=== PATIENT | male | born 1950 | race Caucasian/White ===

== ENCOUNTER 2022-02-07 16:41 | Emergency (ER) | payer SELFPAY ==
--- NOTE | 2022-02-07 13:56 | Emergency Department Report ---
ED Syncope HPI - General Chief Complaint: High BP Stated Complaint: HYPERTENSION Source: patient - History of Present Illness Initial Comments: Patient is 71 years old male with history of hypertension and asthma. Patient brought to the emergency room via EMS from home for evaluation of sudden onset of dizziness, syncope and collapse. Patient stated that he was trying to use his oil changer and when he went down he got dizzy and passed out approximately 40 seconds before he woke up again. Patient stated that he felt the room spinning. He denied any nausea or vomiting. He stated that he has some blurry vision. He denied any ear symptoms. Patient denied any focal weakness, numbness or tingling sensation. No bowel or bladder incontinence. Patient also denies any chest pain, palpitation or shortness of breath. Stroke scale is 0. Timing/Prior Episodes: no prior history Precipitating Factors: Positive: lightheadedness. Negative: blurred vision, confusion, diaphoresis, injury, nausea, recent head trauma, rapid heart beat Context: standing Loss of Consciousness: brief (seconds) Current Symptoms: dizziness - Related Data Allergies/Adverse Reactions: Allergies No Known Allergies Allergy (Verified 02/07/22 17:06) Home Medications: Ambulatory Orders Acetaminophen [Non-Aspirin Extra Strength] 500 mg PO PRN 02/07/22 Losartan/Hydrochlorothiazide [Losartan-Hctz 50-12.5 mg Tab] 50 mg PO DAILY 02/07/22 Naproxen Sodium [All Day Pain Relief] 220 mg PO BID 02/07/22 ED Review of Systems ROS: Stated complaint: HYPERTENSION Other details as noted in HPI Comment: All other systems reviewed and negative Constitutional: denies: chills, fever Respiratory: denies: cough, shortness of breath, SOB with exertion, SOB at rest Cardiovascular: denies: chest pain, palpitations Gastrointestinal: denies: abdominal pain, nausea, vomiting, diarrhea, constipation, hematemesis, hematochezia Musculoskeletal: denies: back pain Neurological: headache, vertigo. denies: weakness, numbness, paresthesias, confusion, abnormal gait ED Past Medical Hx - Medications Home Medications: Home Medications Medication Instructions Recorded Confirmed Last Taken Type Acetaminophen [Non-Aspirin Extra 500 mg PO PRN 02/07/22 02/07/22 Unknown History Strength] Losartan/Hydrochlorothiazide 50 mg PO DAILY 02/07/22 02/07/22 Unknown History [Losartan-Hctz 50-12.5 mg Tab] Naproxen Sodium [All Day Pain 220 mg PO BID 02/07/22 02/07/22 Unknown History Relief] ED Physical Exam - General Limitations: No Limitations General appearance: alert, in no apparent distress - Head Head exam: Present: atraumatic, normocephalic, normal inspection - Eye Eye exam: Present: normal appearance - ENT ENT exam: Present: normal exam, normal orophraynx, mucous membranes moist - Neck Neck exam: Present: normal inspection, full ROM. Absent: tenderness, meningismus - Respiratory Respiratory exam: Present: normal lung sounds bilaterally - Cardiovascular Cardiovascular Exam: Present: regular rate, normal rhythm, normal heart sounds - GI/Abdominal GI/Abdominal exam: Present: soft, normal bowel sounds. Absent: distended, tenderness, guarding, rebound, rigid, organomegaly, mass, bruit, pulsatile mass, hernia - Extremities Exam Extremities exam: Present: normal inspection, full ROM, normal capillary refill. Absent: tenderness, pedal edema, joint swelling, calf tenderness - Back Exam Back exam: Present: normal inspection, full ROM. Absent: CVA tenderness (R), CVA tenderness (L) - Neurological Exam Neurological exam: Present: alert, oriented X3, CN II-XII intact, normal gait, reflexes normal. Absent: motor sensory deficit - Psychiatric Psychiatric exam: Present: normal mood - Skin Skin exam: Present: warm, intact, normal color ED Course Vital Signs 02/07/22 02/07/22 02/07/22 13:13 13:16 13:53 Temperature 98.4 F 98.8 F Pulse Rate 68 68 Respiratory 16 11 L Rate Blood Pressure Blood Pressure 178/100 181/115 [Left] O2 Sat by Pulse 100 100 96 Oximetry 02/07/22 02/07/22 02/07/22 13:55 14:00 14:16 Temperature Pulse Rate 58 L 58 L 73 Respiratory 14 14 15 Rate Blood Pressure Blood Pressure [Left] O2 Sat by Pulse 97 95 90 Oximetry 02/07/22 02/07/22 02/07/22 14:30 14:46 14:50 Temperature Pulse Rate 68 69 65 Respiratory 20 15 15 Rate Blood Pressure 168/99 168/99 Blood Pressure 168/99 [Left] O2 Sat by Pulse 100 99 100 Oximetry 05/22/22 05/22/22 05/22/22 14:51 14:53 15:00 Temperature Pulse Rate 61 84 Respiratory 23 Rate Blood Pressure 151/100 151/100 Blood Pressure [Left] O2 Sat by Pulse 98 99 Oximetry 02/07/22 02/07/22 02/07/22 15:16 15:30 15:46 Temperature Pulse Rate 97 H Respiratory 32 H Rate Blood Pressure 151/100 160/90 160/90 Blood Pressure [Left] O2 Sat by Pulse 98 99 98 Oximetry 02/07/22 02/07/22 02/07/22 16:00 16:16 16:30 Temperature Pulse Rate 89 Respiratory 18 Rate Blood Pressure 158/89 158/89 160/91 Blood Pressure 160/91 [Left] O2 Sat by Pulse 98 98 98 Oximetry 02/07/22 02/07/22 02/07/22 16:46 17:00 17:09 Temperature 96.8 F L Pulse Rate Respiratory Rate Blood Pressure 160/91 170/88 Blood Pressure [Left] O2 Sat by Pulse 98 98 Oximetry ED Medical Decision Making - Lab Data Result diagrams: 02/07/22 13:58 02/07/22 14:52 - EKG Data -: EKG Interpreted by Dc EKG shows normal: sinus rhythm Rate: normal - EKG Data Interpretation: no acute changes - Radiology Data Radiology results: report reviewed - Medical Decision Making Patient is 71 years old male with history of hypertension and asthma. Patient brought to the emergency room via EMS from home for evaluation of sudden onset of dizziness, syncope and collapse. Patient stated that he was trying to use his oil changer and when he went down he got dizzy and passed out approximately 40 seconds before he woke up again. Patient stated that he felt the room spinning. He denied any nausea or vomiting. He stated that he has some blurry vision. He denied any ear symptoms. Patient denied any focal weakness, numbness or tingling sensation. No bowel or bladder incontinence. Patient also denies any chest pain, palpitation or shortness of breath. Stroke scale is 0. Patient received hydralazine 20 mg IV and meclizine. Patient stated that her symptoms completely resolved. Patient stated that he is feeling much much better. Labs reviewed and is unremarkable. CT brain is negative for acute finding. At this moment I believe that his symptom is most likely positional vertigo given the spinning of the room, no ataxia no visual disturbances to suggest posterior circulation stroke. I strongly advised the patient to follow- up with his primary care physician and to return to the ER if he develop any new symptoms. Critical care attestation.: If time is entered above; I have spent that time in minutes in the direct care of this critically ill patient, excluding procedure time. ED Disposition Clinical Impression: Syncope and collapse, Dizziness Disposition: HOME / SELF CARE / HOMELESS Is pt being admited?: No Condition: Stable Instructions: Syncope (ED), Dizziness, [id number], Syncope, [id number] Referrals: PRIMARY CARE, [Referring] - 3-5 Days
[2022-02-07 14:11] LABS: Basophils % (Auto) 0.3 % (0.0-1.8); Eosinophils % (Auto) 0.8 % (0.0-4.3); Hematocrit 43.4 % (35.5-45.6); Hemoglobin 14.5 gm/dl (11.8-15.2); Lymphocytes # (Auto) 1.5 K/mm3 (1.2-5.4); Lymphocytes % (Auto) 24.4 % (13.4-35.0); Mean Corpuscular HGB Conc 33 % (32-34); Mean Corpuscular Volume 88 fl (84-94); Monocytes # (Auto) 0.5 K/mm3 (0.0-0.8); Monocytes % (Auto) 7.9 % (0.0-7.3); Platelet Count 141 K/mm3 (140-440); Red Blood Count 4.96 M/mm3 (3.65-5.03); Red Cell Distribution Width 14.5 % (13.2-15.2)
[2022-02-07 14:23] LABS: INR 0.91 (0.87-1.13); Partial Thromboplastin Time 25.9 Sec. (24.2-36.6)
--- NOTE | 2022-02-07 14:33 | Cat Scan Report ---
CT head/brain wo con INDICATION / CLINICAL INFORMATION: Syncope. TECHNIQUE: Axial CT imaging of the brain was obtained without contrast. Coronal and sagittal reformatted imaging obtained and reviewed. All CT scans at this location are performed using CT dose reduction for ALAR A by means of automated exposure control. COMPARISON: None available. FINDINGS: No intracranial hemorrhage, mass, or midline shift is noted. No extra-axial fluid collection or sugge stion of acute territorial infarction. Ventricular system and basilar cisterns are unremarkable. Mild cerebral and cerebellar atrophy noted, age appropriate. Visualized paranasal sinuses and mastoid air cells are well aerated and clear. IMPRESSION: 1. No acute intracranial abnormality. Signer Name: Tatiana Victor MD Signed: 02/07/2022 2:29 PM Workstation Name: [id number]
[2022-02-07 14:34] LABS: BUN/Creatinine Ratio 24; Blood Urea Nitrogen 19 mg/dL (9-20); Hemolysis Index 450
[2022-02-07 14:38] LABS: Alanine Aminotransferase 17 units/L (7-56); Albumin 4.3 g/dL (3.9-5)
[2022-02-07 14:39] LABS: Bilirubin,Direct < 0.2 mg/dL (0-0.2)
--- NOTE | 2022-02-07 14:54 | XRay Report ---
CHEST 1 VIEW 02/07/2022 2:31 PM INDICATION / CLINICAL INFORMATION: Syncope. COMPARISON: None available. FINDINGS: SUPPORT DEVICES: None. HEART / MEDIASTINUM: The heart size and pulmonary vasculature are normal. There is mild aortic tortuo sity without evidence of aneurysm. LUNGS / PLEURA: No significant pulmonary or pleural abnormality. No pneumothorax. ADDITIONAL FINDINGS: No significant additional findings. IMPRESSION: No acute findings. Signer Name: Kranthi Gomez MD Signed: 02/07/2022 2:50 PM Workstation Name: [id number]
[~2022-02-07 16:41] MED LIST: MECLIZINE 25 MG TAB PO ONE; hydrALAZINE 20 MG/1 ML INJ IV ONE
[2022-02-07 18:32] VITALS: BP 153/94
--- NOTE | 2022-02-08 08:57 | Electrocardiograph Report ---
[facility] Test Date: 2022-02-07 Test Time: 13:45:45 Pat Name: KODAK ESTRADA Department: Room: Gender: M Electronic Device Monitor: [facility] : 1950 Requested By: SHERI CASTRO Order Number: [id number] Reading MD: Graham Capone Measurements Intervals [place] Rate: 61 P: 71 TN: 199 QRS: 41 QRSD: 95 T: 50 QT: 434 QTc: 438 Interpretive Statements Sinus rhythm No previous ECG available for comparison Electronically Signed On 02-08-2022 8:57:12 EDT by Graham Capone
== END 2022-02-07 18:40 | disposition home or self-care (01) ==
LOC: ED 16:41
DX: R42 Dizziness and giddiness (principal); R55 Syncope and collapse
CPT/HCPCS: 36415; 70450; 71045; 80048; 80076; 84132; 84484; 85025; 85610; 85730; 93005; 96374; 99285; J0360